=== PATIENT | female | born 1990 | race Caucasian/White ===

== ENCOUNTER 2017-03-28 09:53 | Inpatient (IN) ==
[2017-03-28] MEDS ORDERED: Ringers Solution, Lactated 1,000 ML ONE ×3 (10:01→13:18)
[2017-03-28] MEDS ORDERED: CeFAZolin Pre 2,000 MG/100 ML 2,000 MG/100 ML BAG IVPB ONE (10:02)
[2017-03-28] MEDS ORDERED: Famotidine 20 MG/2 ML VIAL IVP ONE (10:02)
[2017-03-28] MEDS ORDERED: Oxytocin 20 units/ LR 1000 mL 20 UNIT/1,000 ML BAG IVC ONE (10:02)
[2017-03-28] MEDS ORDERED: Metoclopramide 10 MG/2 ML VIAL IVP ONE (10:02)
[2017-03-28] MEDS ORDERED: Ringers Solution, Lactated 1,000 ML IVC SCH (10:15)
[2017-03-28 10:32] LABS: Basophils # 0.1 K/mcL (0.0-0.2); Basophils % 0.5 %; Eosinophils # 0.1 K/mcL (0.0-0.6); Hematocrit 36.3 % (35.3-44.9); Hemoglobin 11.4 g/dL (11.5-15.4); Immature Granulocytes % 0.5 % (0-4); Lymphocytes # 1.5 K/mcL (0.6-4.6); Lymphocytes % 15.1 %; Mean Corpuscular HGB Conc 31.4 g/dL (31.6-35.5); Mean Corpuscular Hemoglobin 25.7 pg (28.0-33.3); Mean Corpuscular Volume 81.8 fL (83.0-100.0); Mean Platelet Volume 9.9 fL (9.4-12.4); Monocytes # 0.8 K/mcL (0.0-1.3); Monocytes % 7.7 %; Neutrophils # 7.4 K/mcL (1.6-8.9); Platelet Count 256 K/mcL (140-400); Red Blood Count 4.44 M/mcL (3.82-4.97); Red Cell Distribution Width 19.1 % (11.5-14.5); Segmented Neutrophils % 75.2 %
[2017-03-28 10:38] LABS: Amphetamine Screen,Urine Negative ng/mL (Cutoff=1000); Barbiturate Screen,Urine Negative ng/mL (Cutoff=200); Benzodiazepines Screen,Urine Negative ng/mL (Cutoff=200); Cannabinoid Screen,Urine Negative ng/mL (Cutoff = 50); Cocaine Screen,Urine Negative ng/mL (Cutoff= 300); Opiate Screen,Urine Negative ng/mL (Cutoff=300); Phencyclidine Screen,Urine Negative ng/mL (Cutoff=25)
--- NOTE | 2017-03-28 10:46 | OB/GYN History & Physical ---
Date of Encounter: 03/28/17 Time of Encounter: 10:39 Assessment and Plan (1) History of section, low transverse Current visit: Yes Status: Acute Scheduled repeat section today. (2) 39 weeks gestation of Current visit: Yes Status: Acute Scheduled delivery today. History of Present Illness Chief complaint: Patient her for scheduled repeat c/s at 39 weeks HPI: Ms. Mcgrath is a 26 year old female at 39.0wks with history of 2 previous c- sections her for scheduled repeat . Blood Type A+, GBS negative, Rubella Immune, HBSAG nonreactive, Varicella immune. Pt reports + movement , occassional contractions, denies LOF and vaginal bleeding. Past Med Surg Social Fam HX - Past Medical History Source: patient Medical history: no medical history Psychiatric history: no psych history - Past Surgical History Surgical History: - Social History Smoking Status: Former smoker Alcohol use: none Drug use: none Current living situation: Home - Independent Activity Level: Independent ambulation Recent Out of Country Travel Within the Last 8 Weeks: No Exposure or Possible Exposure to Illness During Travel: No - Family History Father Name: Dale Age: 50 Living Status: Still Living Hx Family Cardiac Disorders: Yes (HTN) Obstetrical History - Pregnancies : 3 Para: 2 Term: 2 : 0 Ab's: 0 Livin - History/Complications History/Complications: FHR 135bpm, moderate variability, +15x15 accels, no decels. Category I tracing. Ctx irregular. Medications and Allergies Ferrous Sulfate [Iron] 325 mg PO DAILY 03/28/17 [History] Vit/Iron Fumarate/FA [ Tablet] 1 tab PO DAILY 03/28/17 [History ] 3 Allergy/AdvReac Type Severity Reaction Status Date / Time albuterol [From Ventolin HFA] AdvReac Palpitation Verified 11/09/16 10:52 s Review of System OB All systems PM: reviewed and no additional remarkable complaints except as stated - Constitutional Constitutional ROS IM: no chills, no fever(s), no headache(s) - Respiratory Respiratory: no dyspnea, no wheezing Exam - Constitutional Constitutional: well developed, well nourished, no acute distress - Neck Neck exam: full ROM, normal inspection - Lungs Respiratory exam: CTAB - Cardiovascular Cardiovascular exam: RRR, +S1, +S2 - Abdomen Abdomen: Present: bowel sounds normal, gravid, non tender - Extremities Extremities exam: full ROM, normal inspection Results Result Diagrams: 03/28/17 10:10 Abnormal lab results Hgb 11.4 g/dL (11.5-15.4) L 03/28/17 10:10 MCV 81.8 fL (83.0-100.0) L 03/28/17 10:10 MCH 25.7 pg (28.0-33.3) L 03/28/17 10:10 MCHC 31.4 g/dL (31.6-35.5) L 03/28/17 10:10 RDW 19.1 % (11.5-14.5) H 03/28/17 10:10 All other labs normal. - VTE Reasons for not Prescribing Prophylaxis: Treatment not Indicated - Low risk for VTE
--- NOTE | 2017-03-28 11:11 | Anesthesia Evaluation PreOp ---
Date of Encounter: 03/28/17 Time of Encounter: 11:09 - Past History Planned Operation: Repeat C Section Cardiac History: Denies any Significant Hx Pulmonary History: Denies Any Significant HX SERVER PROGRAMMER History: Denies Any Significant HX Other Medical History: Denies Any Significant HX Anesthesia History: Past Anesthesia (MARY x 1, spinal x 1; denies personal h/o NA complications; never had GA before; denies family h/o GA complications) : Yes Test: Positive Alcohol Use: none Drug use: none Medications and Allergies Ferrous Sulfate [Iron] 325 mg PO DAILY 03/28/17 [History] Vit/Iron Fumarate/FA [ Tablet] 1 tab PO DAILY 03/28/17 [History ] 3 Allergy/AdvReac Type Severity Reaction Status Date / Time albuterol [From Ventolin HFA] AdvReac Palpitation Verified 11/09/16 10:52 s - Meds/Allergy Pre-op Review Medications Reviewed: Yes Allergies Reviewed: Yes Beta Blockers on Current Med List: No Anesthesia Results - Labs 03/28/17 10:10 Anesthesia Exam 124/68, HR105, RR 18 O2 Sat Height 1.57 m Weight 91 kg NPO (# of Hours): >8hrs Pain Scale: 0 Pain Scale Used: Numeric (1 - 10) - HEENT Pupil (Motor): Pupils equal Mallampati: II Teeth: Normal Oral Opening: Greater than 3 - SERVER PROGRAMMER LOC: Oriented SERVER PROGRAMMER Motor: Normal RUE, Normal LUE, Normal RLE, Normal LLE, Normal Face SERVER PROGRAMMER Sensory: Normal: RUE, LUE, RLE, LLE, Face - Cardiac Rhythm: Regular Murmur: None - Pulmonary Breath Sounds: bilateral Clear Respiratory Effort: Symmetrical Anesthesia Assess/Plan ASA Score: 2 Modified Jessi Scale for Level of Consciousness: Cooperative, oriented, and tranquil Anesthetic Plan: Regional Autologous Blood: No Monitoring Plan: Standard Monitors Recovery Plan: PACU
[2017-03-28] MEDS ORDERED: *HR* FentaNYL (PF) 100 MCG/2 ML VIAL ONE (11:14)
[2017-03-28] MEDS ORDERED: *HR* Morphine Sulfate/PF 5 MG/10 ML AMPUL ONE (11:14)
[2017-03-28] MEDS ORDERED: *HR* Phenylephrine 10 MG/ML VIAL ONE (11:19)
[2017-03-28] MEDS ORDERED: *HR* Oxytocin 10 UNIT/ML VIAL IM ONE (11:21)
[2017-03-28] MEDS ORDERED: *HR* HYDROmorphone (PF) 1 MG/ML SYRINGE IVP PRN ×2 (13:14→17:02)
[2017-03-28] MEDS ORDERED: Naloxone 0.4 MG/ML INJ IVP PRN ×2 (13:14→17:02)
[2017-03-28] MEDS ORDERED: Ondansetron 4 MG/2 ML VIAL IVP PRN ×2 (13:14→17:02)
[2017-03-28] MEDS ORDERED: Lidocaine -MPF 2% 5 ML VIAL ONE (13:48)
--- NOTE | 2017-03-28 14:29 | Anesthesia Evaluation Post Op ---
Date of Encounter: 03/28/17 Time of Encounter: 14:28 - Vital Signs Vital Signs: 107/52, HR 96, RR 15, SpO2 99% - Lungs Lungs: Clear Ascult./Percussion - Airway Airway: Non-obstructed - Cardiovascular Regular Rate - Mental Status Mental Status: Alert & Oriented, Answers Appropriately - Pain Pain Scale: 0 Pain Scale used: Numeric (1 - 10) - Nausea Vomiting Nausea Vomiting: Not Present - Hydration Hydration: NPO, Hadley catheter - Discharge PostOp Status: Transfer Patient to floor
[2017-03-28] MEDS ORDERED: Ibuprofen 600 MG TABLET PO PRN (17:02)
[2017-03-28] MEDS ORDERED: Oxytocin 20 units/ LR 1000 mL 20 UNIT/1,000 ML BAG IVC SCH (17:02)
[2017-03-28] MEDS ORDERED: Sennosides 8.6 MG TABLET PO PRN (17:02)
[2017-03-28] MEDS ORDERED: Rho Immune Globulin 1,500 UNIT SYRINGE IM ONE (17:02)
[2017-03-28] MEDS ORDERED: Metoclopramide 10 MG/2 ML VIAL IVP PRN (17:02)
[2017-03-28] MEDS: *HR* OxyCODONE/APAP 5/325 TABLET PO PRN (22:13)
[2017-03-29] MEDS: Prenatal Vit/FA 1 EACH TABLET PO SCH (09:19)
[2017-03-29] MEDS: Simethicone 80 MG TAB.CHEW PO PRN (09:19)
[2017-03-29 09:23] LABS: Basophils % 0.3 %; Eosinophils # 0.1 K/mcL (0.0-0.6); Eosinophils % 0.5 %; Hematocrit 31.3 % (35.3-44.9); Immature Granulocytes % 0.3 % (0-4); Lymphocytes % 8.6 %; Mean Corpuscular HGB Conc 30.4 g/dL (31.6-35.5); Mean Corpuscular Volume 82.4 fL (83.0-100.0); Mean Platelet Volume 10.2 fL (9.4-12.4); Monocytes # 0.9 K/mcL (0.0-1.3); Monocytes % 7.8 %; Neutrophils # 9.5 K/mcL (1.6-8.9); Platelet Count 257 K/mcL (140-400); Red Cell Distribution Width 19.3 % (11.5-14.5); Segmented Neutrophils % 82.5 %
[2017-03-29 09:31] LABS: Hemoglobin 9.5 g/dL (11.5-15.4)
--- NOTE | 2017-03-29 10:45 | OB/GYN Progress Note ---
Date of Encounter: 03/29/17 Time of Encounter: 10:43 - Assessment and Plan (1) delivery delivered Current Visit: Yes Status: Acute Stable POD 1. Continue current mangement. Anticipate DC tomorrow. Subjective - Subjective Interval history: Pt states feels well. Pain well managed on po pain medication. Up and ambulating in room. Patient reports: appetite normal, voiding normally, pain well controlled, ambulating normally : doing well Objective - Vital Signs Latest vital signs: Vital Signs Temp Pulse Pulse Resp BP Pulse Ox 03/29/17 04:00 98.5 F 100 18 94/64 100 03/28/17 23:00 98.9 F 95 16 100/64 98 03/28/17 19:30 97.8 F 89 16 104/69 97 03/28/17 18:30 97.7 F 96 96 16 100/61 98 03/28/17 17:35 97.4 F L 104 104 16 116/69 96 03/28/17 17:03 97.7 F 94 94 16 109/66 98 03/28/17 16:35 97.7 F 94 89 16 95/58 98 03/28/17 16:30 89 16 Intake and Output 03/28/17 03/29/17 03/29/17 23:59 07:59 15:59 Intake Total 720 / 720 400 / 400 Output Total 900 / 900 600 / 600 Balance -180 / -180 -200 / -200 Intake: Oral 720 / 720 400 / 400 Output: Catheter 900 / 900 600 / 600 Other: Weight 88.768 kg Patient Weight 03/29/17 23:59 Weight 88.768 kg - Exam Lungs: bilateral: normal Chest: Normal S1, Normal S2 Extremities: Present: normal Abdomen: Present: normal appearance, soft Incision: Present: dressed Uterus: Present: firm (At U) - Labs Labs: Laboratory Results - last 24 hr 03/29/17 08:16 WBC 11.6 H RBC 3.80 L Hgb 9.5 L D Hct 31.3 L MCV 82.4 L MCH 25.0 L MCHC 30.4 L RDW 19.3 H Plt Count 257 MPV 10.2 Immature Gran % 0.3 Seg Neutrophils % 82.5 Lymphocytes % 8.6 Monocytes % 7.8 Eosinophils % 0.5 Basophils % 0.3 Neutrophils # 9.5 H Lymphocytes # 1.0 Monocytes # 0.9 Eosinophils # 0.1 Basophils # 0.0
[2017-03-29] MEDS: *HR* OxyCODONE/APAP 5/325 TABLET PO PRN (18:26)
[2017-03-30] MEDS: *HR* OxyCODONE/APAP 5/325 TABLET PO PRN ×2 (00:36→08:11)
[2017-03-30] MEDS: Simethicone 80 MG TAB.CHEW PO PRN ×2 (00:38→08:15)
[2017-03-30] MEDS: Prenatal Vit/FA 1 EACH TABLET PO SCH (08:11)
--- NOTE | 2017-03-30 10:08 | Discharge Summary ---
Date of Encounter: 03/30/17 Time of Encounter: 10:05 - Discharge Diagnosis (1) delivery delivered Priority: Primary Status: Acute Comments: Vital signs stable, on POD2 patient has interest in going home. Pt has good appetite, baby feeding well, pt ambulates and able to void/bm/ flatus without difficulty. Lochia has no clots, mild. Will discharge today. - Discharge Medications Prescriptions: Ibuprofen [Motrin] 600 mg PO Q6HR PRN #20 tab PRN Reason: Pain Ferrous Sulfate 325 mg PO DAILY #7 tablet Home Medications: Vit/Iron Fumarate/FA [ Tablet] 1 tab PO DAILY 03/28/17 [History ] Docusate [Colace] 100 mg PO DAILY #7 capsule 03/30/17 [Rx] Ferrous Sulfate 325 mg PO DAILY #7 tablet 03/30/17 [Rx] Ibuprofen [Motrin] 600 mg PO Q6HR PRN #20 tab 03/30/17 [Rx] Vit/FA 1 each PO DAILY tablet 03/30/17 [Rx] Allergies/Adverse Reactions: 3 Allergy/AdvReac Type Severity Reaction Status Date / Time latex Allergy Rash Verified 03/28/17 11:28 albuterol [From Ventolin HFA] AdvReac Palpitation Verified 11/09/16 10:52 s Data Procedures and tests throughout hospitalization: Laboratory Tests 03/28/17 03/28/17 03/29/17 10:10 10:10 08:16 WBC 9.8 11.6 H RBC 4.44 3.80 L Hgb 11.4 L 9.5 L D Hct 36.3 31.3 L MCV 81.8 L 82.4 L MCH 25.7 L 25.0 L MCHC 31.4 L 30.4 L RDW 19.1 H 19.3 H Plt Count 256 257 MPV 9.9 10.2 Immature Gran % 0.5 0.3 Seg Neutrophils % 75.2 82.5 Lymphocytes % 15.1 8.6 Monocytes % 7.7 7.8 Eosinophils % 1.0 0.5 Basophils % 0.5 0.3 Neutrophils # 7.4 9.5 H Lymphocytes # 1.5 1.0 Monocytes # 0.8 0.9 Eosinophils # 0.1 0.1 Basophils # 0.1 0.0 Urine Opiates Screen Negative Ur Barbiturates Screen Negative Ur Phencyclidine Scrn Negative Ur Amphetamines Screen Negative U Benzodiazepines Scrn Negative Urine Cocaine Screen Negative U Marijuana (THC) Screen Negative Date of admission: 03/28/17 09:53 Primary care physician: PCP NONE Discharging clinician: Cassandra Adair Anticipated date of discharge: 03/30/17 - Patient Status Disposition: Home, Self-Care Condition: Good Functional capacity at discharge: independent ambulation Overall status at discharge: patient is back to baseline - Discharge Instructions Follow Up With: NONE,PCP [Primary Care Provider] - - Diet and Activity Activity: increase activity as tolerated Diet: advance to your usual diet Hospital Course Reason for admission: section (repeat ) Delivery: section Episiotomy: none Laceration: none Other procedures: none complications: none Discharge diagnosis: IUP at term delivered [place] baby: male Hospital course: Pt presented 03/28 for 3rd repeat 03/28/17. Provider: Dr. Klein Infant Delivery Date and Time: 131603/28/17. Gender: Boy (Jg) Apgars 8 and 9 (1 min/5min) Time Attestation: Total time spent providing and/or coordinating discharge services: Time Spent: Less than 30 minutes - VTE Reasons for not Prescribing Prophylaxis: Treatment not Indicated - Low risk for VTE Documentation of Mechanical Device: Intermittent pneumatic compression device Exam - Constitutional Vitals: Temp Pulse Resp BP Pulse Ox 97.8 F 86 20 103/69 99 03/29/17 19:20 03/29/17 19:20 03/29/17 19:20 03/29/17 19:20 03/29/17 19:20 General appearance IM: A&O X 3 - Respiratory Respiratory exam: Present: CTAB - Cardiovascular Cardiovascular exam IM: Present: +S1, +S2 - GI/Abdominal GI/Abdominal exam IM: no peritoneal signs Incision: dry, intact - Uterus Position: At Umbilicus - Extremities Exam Extremities exam IM: Present: warm. Absent: calf tenderness
[2017-03-30] MEDS ORDERED: Lanolin 7 G OINT...G. TP PRN (10:31)
[2017-03-30 12:10] VITALS: BP 113/67
[2017-03-30] MEDS ORDERED: FLUARIX QUAD 2017-18 36MOS UP/PF 0.5 ML SYRINGE IM ONE (17:15)
--- NOTE | 2017-04-12 08:17 | OB/GYN Procedure Note ---
Section - Date of procedure: 03/28/17 Preop diagnosis: desires repeat Post-op diagnosis: same Procedure: repeat low transverse Surgeon: Heriberto Klein Estimated blood loss (cc): 500 Store Receiving Clerk: Jg Saucedo Anesthesia Type: Spinal - Infant (s) A Infant Delivery Date: 03/28/17 Infant Delivery Time: 13:17 Presentation: vertex Gender: Male Gram Weight: 3.87 kg at 1 minute: 8 at 5 minutes: 9 Specimens collected: cord blood Placenta: spontaneous Cord: 3 umbilical vessels - Narrative Narrative: Patient's 26-year-old multiparous female presents for repeat section she is aware of operative risks and signed appropriate consent. Description procedure: Patient was taken operating room where spinal anesthesia was administered. She was prepped draped in usual sterile fashion bladder was drained of clear urine. Scalp was used to make pain still skin incision which sharply taken down the rectus fascia. Rectus fascia was incised midline fascial incision was extended bilaterally. Peritoneum was entered bluntly. Bladder blade was placed and bladder flap was developed and lower uterine segment. Scalp was used to make a low transverse uterine incision was was extended bluntly bilaterally. Membranes were ruptured to clear fluid and infant was delivered from vertex presentation. Cord was clamped cut and infant was having nurse personnel who were in attendance. Placenta was delivered manually and uterine cavity was massaged free of all residual tissue. Uterus was closed 0 Vicryl running lock stitch. Irrigation was performed hemostasis was ensured. Fascia was closed with 0 Vicryl in a running manner. After closure of fascia can irrigation was performed hemostasis was ensured. Skin edges were reapproximated with 4-0 Vicryl.
== END 2017-03-30 11:45 | disposition home or self-care (01) | DRG 540 ==
LOC: 1NENULAB 09:53 → 1NENUOBS 17:01
PROVIDERS: ADMIT Obstetrics & Gynecology; ATTEND Obstetrics & Gynecology

== ENCOUNTER 2019-01-17 22:13 | Inpatient (IN) ==
[2019-01-17 21:19] LABS: Amphetamine Screen,Urine Negative ng/mL (Cutoff=1000); Barbiturate Screen,Urine Negative ng/mL (Cutoff=200); Benzodiazepines Screen,Urine Negative ng/mL (Cutoff=200); Cannabinoid Screen,Urine Negative ng/mL (Cutoff = 50); Cocaine Screen,Urine Negative ng/mL (Cutoff= 300); Opiate Screen,Urine Negative ng/mL (Cutoff=300); Phencyclidine Screen,Urine Negative ng/mL (Cutoff=25)
[2019-01-17 21:29] LABS: Basophils % 0.2 %; Eosinophils # 0.1 K/mcL (0.0-0.6); Eosinophils % 0.5 %; Hematocrit 35.2 % (35.3-44.9); Hemoglobin 11.2 g/dL (11.5-15.4); Immature Granulocytes % 0.2 % (0-4); Lymphocytes # 2.1 K/mcL (0.6-4.6); Lymphocytes % 23.2 %; Mean Corpuscular HGB Conc 31.8 g/dL (31.6-35.5); Mean Corpuscular Hemoglobin 26.8 pg (28.0-33.3); Mean Corpuscular Volume 84.2 fL (83.0-100.0); Mean Platelet Volume 10.6 fL (9.4-12.4); Monocytes # 0.7 K/mcL (0.0-1.3); Monocytes % 7.8 %; Neutrophils # 6.2 K/mcL (1.6-8.9); Platelet Count 208 K/mcL (140-400); Red Blood Count 4.18 M/mcL (3.82-4.97); Red Cell Distribution Width 15.4 % (11.5-14.5); Segmented Neutrophils % 68.1 %; White Blood Count 9.1 K/mcL (4.3-11.1)
--- NOTE | 2019-01-17 21:38 | OB/GYN History & Physical ---
Date of Encounter: 01/17/19 Time of Encounter: 21:36 Assessment and Plan (1) History of section, low transverse Current visit: No Status: Acute 28yo at 37+5wks GA who presents with contraction(S), hx of CSD x3 1. Labor - hx of 3 prior FT LTCS - consented with Dr. Klein and scheduled for repeat - patient with medicaid and did NOT sign paperwork for tubal ligation - denies vaginal bleeding, leaking of fluid, does report CTX [id number] - TAUS performed on 01/08 showing ANTERIOR placenta, breech presentation - SVE: cl/th/hi, repeat unchanged s/p 1L IVF bolus - seen by anesthesia for consent for spinal epidural - reconfirmed consent including risks of surgical intervention - plan for repeat x4 CS at term for labor on a uterine scar Dispo: Admission to labor and delivery for CS, patient uncomfortable with contractions regular, on toco. RNST and reassuring. No obstetrical () compromise appreciated. Recommendation(S) for a term patient (>37wks) with uncomfortable contraction(s) resistant to IV hydration is for delivery. Patient is aware of her risk of possible hysterectomy. OK for blood products. MD GERMAINE (2) 39 weeks gestation of Current visit: No Status: Acute History of Present Illness Chief complaint: contractions, hx of prior CS x3 HPI: Ms. Mcgrath is a 28 year old female at 37+5wks GA who presents with concern for active labor. The patient has a complicated by rCS x3, this will be her 4th delivery. Unfortunately the patient did NOT sign tubal ligation paperwork, and she has medicaid. The patient is from [place], with [facility] PNC with Dr. Klein. The patient was scheduled for rLTCS on 01/29. GBS pending. Known "large baby" measuring >91%ile. Consent was signed for delivery with the patient. The patient currently denies n/v/d. Denies VB/LOF. Reports contraction(S) that started this evening. Active fetus. Past Med Surg Social Fam HX - Past Medical History Medical history: no medical history Psychiatric history: no psych history - Past Surgical History Surgical History: Additional surgical history: Oral Surgery - Social History Smoking Status: Never smoker Smokeless Tobacco Status: No Alcohol use: none Drug use: none - Family History Father Living Status: Still Living Hx Family Cardiac Disorders: Yes (HTN) Hx Family Respiratory Disorders: No Hx Family Cancer: No Hx Family GI Disorders: No Hx Family Genitourinary Disorders: No Hx Family Endocrine Disorder: No Hx Family Musculoskeletal Disorders: No Hx Family Neuromuscular Disorders: No Hx Family Neurologic Disorders: No Hx Family HEENT Disorders: No Hx Family Autoimmune Disorders: No Hx Family Reproductive Disorders: No Hx Family Psychosocial Disorders: No Hx Family Medical Disorders: No Obstetrical History - Pregnancies : 4 Para: 3 Term: 3 : 0 Ab's: 0 Livin Medications and Allergies Vit/Iron Fumarate/FA [ Tablet] 1 tab PO DAILY 03/28/17 [History] Docusate [Colace] 100 mg PO DAILY #7 capsule 03/30/17 [Rx] Ferrous Sulfate 325 mg PO DAILY #7 tablet 03/30/17 [Rx] Ibuprofen [Motrin] 600 mg PO Q6HR PRN #20 tab 03/30/17 [Rx] Vit/FA 1 each PO DAILY tablet 03/30/17 [Rx] Ibuprofen [Motrin] 600 mg PO Q8HR PRN #30 tab 06/22/17 [Rx] Allergy/AdvReac Type Severity Reaction Status Date / Time latex Allergy Rash Verified 06/22/17 10:15 albuterol [From Ventolin HFA] AdvReac Palpitation Verified 06/22/17 10:15 s Exam - Constitutional Constitutional: well developed, well nourished, no acute distress, average body habitus - HEENT HEENT: Normocephaly, Mucus Membranes Moist - Neck Neck exam: full ROM - Cardiovascular Cardiovascular exam: RRR - Abdomen Abdomen: Present: bowel sounds normal - Extremities Extremities exam: full ROM Results Result Diagrams: 01/17/19 21:10 Abnormal lab results Hgb 11.2 g/dL (11.5-15.4) L 01/17/19 21:10 Hct 35.2 % (35.3-44.9) L 01/17/19 21:10 MCH 26.8 pg (28.0-33.3) L 01/17/19 21:10 RDW 15.4 % (11.5-14.5) H 01/17/19 21:10 All other labs normal. - VTE Reasons for not Prescribing Prophylaxis: Treatment not Indicated - Low risk for VTE
--- NOTE | 2019-01-17 22:01 | Anesthesia Evaluation PreOp ---
Date of Encounter: 01/17/19 Time of Encounter: 21:58 - Past History Planned Operation: Spinal/repeat csection Cardiac History: Denies any Significant Hx Pulmonary History: Denies Any Significant HX, Asthma ADMISSIONS OFFICER History: Denies Any Significant HX Other Medical History: GERD, Other (anemia) Anesthesia History: No Prior Anesthetic Complications, Past Anesthesia (previous csection x 3, tooth extraction) : Yes Alcohol Use: none Drug use: none Medications and Allergies Vit/Iron Fumarate/FA [ Tablet] 1 tab PO DAILY 03/28/17 [History] Docusate [Colace] 100 mg PO DAILY #7 capsule 03/30/17 [Rx] Ferrous Sulfate 325 mg PO DAILY #7 tablet 03/30/17 [Rx] Ibuprofen [Motrin] 600 mg PO Q6HR PRN #20 tab 03/30/17 [Rx] Vit/FA 1 each PO DAILY tablet 03/30/17 [Rx] Ibuprofen [Motrin] 600 mg PO Q8HR PRN #30 tab 06/22/17 [Rx] Allergy/AdvReac Type Severity Reaction Status Date / Time latex Allergy Rash Verified 06/22/17 10:15 albuterol [From Ventolin HFA] AdvReac Palpitation Verified 06/22/17 10:15 s - Meds/Allergy Pre-op Review Medications Reviewed: Yes Allergies Reviewed: Yes Beta Blockers on Current Med List: No Anesthesia Results - Labs 01/17/19 21:10 Anesthesia Exam BP 128/75 P 88 R 16 T 97.0 Height: 5'2" Weight: 93.3kg NPO (# of Hours): 8hrs solids, 2hrs water Pain Scale: 4 Pain Scale Used: Numeric (1 - 10) - HEENT Pupil (Motor): Pupils equal Mallampati: II Teeth: Normal Oral Opening: Greater than 3 - ADMISSIONS OFFICER LOC: Oriented ADMISSIONS OFFICER Motor: Normal RUE, Normal LUE, Normal RLE, Normal LLE, Normal Face ADMISSIONS OFFICER Sensory: Normal: RLE, LLE, Face, Deficit: RUE (carpal tunnel), LUE (carpal tunnel) - Cardiac Rhythm: Regular Murmur: None JVD: No Carotid Bruit: No - Pulmonary Breath Sounds: bilateral Clear Respiratory Effort: Symmetrical Anesthesia Assess/Plan ASA Score: 2 Level of consciousness: Cooperative, Oriented, Tranquil Anesthetic Plan: Spinal Autologous Blood: Yes Monitoring Plan: Standard Monitors Recovery Plan: PACU
[~2019-01-17 22:13] MED LIST: CeFAZolin Premix DUPLEX 2,000 MG/50 ML BAG IVPB ONE; Famotidine 20 MG/2 ML VIAL IVP ONE; Metoclopramide 10 MG/2 ML VIAL IVP ONE; Ringers Solution, Lactated 1,000 ML IVC SCH; Ringers Solution, Lactated 1,000 ML ONE
[2019-01-17] MEDS ORDERED: *HR* Morphine Sulfate/PF 10 MG/10 ML AMPUL ONE (22:15)
[2019-01-17] MEDS ORDERED: Ondansetron 4 MG/2 ML VIAL ONE (22:50)
[2019-01-17] MEDS ORDERED: Dexamethasone 4 MG/ML VIAL ONE (22:50)
[2019-01-17] MEDS ORDERED: *HR* Phenylephrine 10 MG/ML VIAL ONE (22:55)
[2019-01-17] MEDS ORDERED: *HR* Oxytocin 10 UNIT/ML VIAL IM ONE (23:06)
--- NOTE | 2019-01-17 23:22 | Anesthesia Procedures ---
Date of Encounter: 01/17/19 Time of Encounter: 22:45 Procedures: Anesthesia - Epidural/Spinal Patient ID/Chart reviewed: Yes Patient examined: Yes OB Eval: Gestational age: 37.4 OB Eval: : 4 OB Eval: Hx Para: 3 OB Eval: Contractions: Non-stressed pattern Supplemental Oxygen: None/Room Air Site Prep: Aseptic Technique, Sterile prep and drape, Povidone-Iodine 1% Patient position: upright Local Anesthetic: Lidocaine 1% Amount of Local Anesthetic used: 3 Interspace Used: L4-L5 Blood: No CSF: Yes Paresthesia: No Spinal Needle Gauge: 25 Spinal Dose: Bupivicaine 0.75% 1.4ml Duramorph 300mcg Procedure: Intrathecal dose administered 1st pass in upright position with Pencan 25g. CSF aspirated with swirl. No immediate complications noted. VSS throughout. Vitals + FHT's: See anesthesia record.
[2019-01-17] MEDS ORDERED: Ibuprofen 400 MG TABLET PO PRN (23:50)
[2019-01-17] MEDS ORDERED: Ondansetron 4 MG/2 ML VIAL IVP PRN (23:50)
[2019-01-17] MEDS ORDERED: *HR* OxyCODONE/APAP 5/325 TABLET PO PRN (23:50)
[2019-01-17] MEDS ORDERED: Naloxone 0.4 MG/ML INJ IVP PRN (23:50)
[2019-01-17] MEDS ORDERED: Morphine Sulfate 2 MG/ML SYRINGE IVP PRN (23:50)
[2019-01-17] MEDS ORDERED: *HR* HYDROmorphone (PF) 1 MG/ML SYRINGE IVP PRN (23:50)
[2019-01-17] MEDS ORDERED: Oxytocin 20 units/ LR 1000 mL 20 UNIT/1,000 ML BAG IVC ONE (23:55)
[2019-01-17] MEDS ORDERED: Acetaminophen IV 1,000 MG/100 ML INFUS..BTL IVPB ONE (23:55)
--- NOTE | 2019-01-18 00:04 | OB/GYN Procedure Note ---
Section - Date of procedure: 01/17/19 Preop diagnosis: desires repeat Post-op diagnosis: same Procedure: repeat low transverse Surgeon: Paola Maldonado Blood Loss: 450 Was there an general surgery physician assistant present: No Anesthesia Type: Spinal section complications: none Disposition: Post floor Specimens: Placenta - (s) Infant A Delivery Date: 01/17/19 Infant Delivery Time: 23:06 Presentation: transverse lie Gender: Female Viability: Viable Pounds: 7 Ounces: 9 Gram Weight: 3430 kg at 1 minute: 5 at 5 minutes: 9 Cord: nuchal cord, delivered through nuchal - Narrative Narrative: OPERATIVE REPORT: DATE: 01/17/2019 PATIENT NAME: SUNITA SIMENTAL PROCEDURE: REPEAT LOW TRANSVERSE DELIVERY, HX OF 3 PRIOR DELIVERY DIAGNOSIS: 37+5 WEEKS GESTATION CONCERN FOR ACTIVE LABOR ON UTERINE SCAR HX OF 3 PRIOR LOW TRANSVERSE DELIVERIES TRANSVERSE PRESENTATION POSTOPERATIVE DIAGNOSIS: SAME EBL: 450ML UOP:300ML IVF: 1300ML SPECIMENS: PLACENTA CORD SEGMENT PROCEDURE: PATIENT WAS TAKEN TO OR WHERE SPINAL ANESTHESIA WAS FOUND TO BE ADEQUATE. PATIENT WAS PREPPED AND DRAPED IN THE USUAL STERILE FASHION. SITES WERE MARKED AND TIMEOUT WAS PERFORMED. A PFANNENSTIEL SKIN INCISION WAS PERFORMED AND CARRIED DOWN TO THE LEVEL OF THE FASCIA. THERE WERE DENSE RECTOFASCIAL ADHESION(S), THE PERITONEUM WAS NO LONGER INTACT AND THE UTERUS WAS EASILY VISUALIZED. USING JARAD CLAMPS, WE SUPERIORLY ELEVATED THE FASCIAL PLANE AND ATTEMPTED TO DISSECT DOWN THE RECTUS ABDOMINUS MUSCLES. WE THEN TURNED OUR ATTENTION INFERIORLY AND PERFORMED THE SAME TECHNIQUE TO ISOLATE THE RECTOFASCIAL PLANE. WE THEN DISSECTED DOWN THE MIDLINE OF THE RECTUS MUSCLE THIS WAS DENSELY ADHESED TO ONE ANOTHER BUT NOT TO THE UTERUS. WE ENTERED THE ABDOMINAL CAVITY RELATIVELY EASILY, WE WERE ABLE TO APPRECIATE NO UTERINE ADHESION(S). THE BLADDER BLADE WAS PLACED AND THE LOWER UTERINE SEGMENT WAS IDENTIFIED. THERE WAS AN OBVIOUS BLADDER REFLECTION APPRECIATED. UTERUS WAS PALPATED TO FUNDUS AND ADEQUATE SPACE FOR DELIVERY OF INFANT WAS APPRECIATED. NO BLADDER FLAP WAS CREATED PRIOR TO HYSTEROTOMY. WE WENT ABOVE THE LEVEL OF THE BLADDER REFLECTION. FLUID WAS CLEAR. WE EXTENDED THE HYSTEROTOMY SUPERIORLY AND INFERIORLY WITH BLUNT AND EQUAL EXTENSION. FETUS WAS FOUND TO BE IN THE TRANSVERSE PRESENTATION. I ROTATED THE PATIENT TO THE RODDY BREECH POSITION AND PERFORMED THE APPROPRIATE MANEUVERS FOR A SAFE DELIVERY. HIPS WERE FLEXED, BUTTOCKS WAS DELIVERED FOLLOWED BY THE R LEG, THEN THE L LEG. WE THEN DELIVERED THE R ARM, FOLLOWED BY THE L ARM. HEAD WAS THEN DELIVERED WITH MINIMAL FUNDAL PRESSURE WE FLEXED THE HEAD DOWNWARD. A LOOSE NUCHAL CORD WAS APPRECIATED AND THE INFANT DELIVERED THROUGH. BABY GIRL DID HAVE TERMINAL MECONIUM AT THE TIME OF DELIVERY AND WAS STUNNED. CORD WAS CLAMPED AND CUT AND THE INFANT WAS HANDED OFF TO PEDIATRICS FOR STIMULATION AND ASSESSMENT. APGARS 5/9. BABY WAS EASILY STIMULATED AND BECAME VIGOROUS AND CRYING. WE THEN TURNED OUR ATTENTION TO THE PLACENTA, AND DELIVERED IT SPONTANEOUSLY. WE EXTERIORIZED THE UTERUS AND STARTED IV PITOCIN. WE EVACUATED THE UTERUS TO ENSURE ALL CLOT AND DEBRIS WAS CLEARED FROM THE ENDOMETRIAL CAVITY. USING RINGED FORCEPS AT BOTH ANGLES, WE CLOSED THE HYSTEROTOMY IN THE RUNNING LOCKED FASHION USING 0-VICRYL SUTURE. HEMOSTASIS WAS APPRECIATED AND THE UTERUS WAS ENTERED BACK INTO THE ABDOMEN. BOTH ANGLES WERE STILL HEMOSTASIS WELL THE UTERINE INCISION, WHILE THE UTERUS WAS FIRM. WE CLEARED BOTH GUTTERS OF CLOT, AND TENTED BOTH THE SUPERIOR AND INFERIOR FASCIA TO ENSURE NO DEFECT WAS APPRECIATED WELL NO BLEEDING. HEMOSTASIS AND INTEGRITY (APPROPRIATE FOR A REPEAT ) WAS VISUALIZED. USING STRATAFIX SUTURE, WE BEGAN TO CLOSE THE FASCIA IN THE RUNNING FASHION, LOCKING THE FIRST THROW. THE FASCIA WAS FOUND TO BE COMPLETELY CLOSED AND ADEQUATE, AND HEMOSTATIC. THE SKIN WAS CLOSED USING 4-0 MONOCRYL SUTURE IN THE RUNNING FASCIA. HEMOSTASIS WAS APPRECIATED. DRESSING WAS PLACED: STERRI STRIPS, TELFA, TEGEDERM. COUNTS WERE CORRECT X3. HEMOSTASIS WAS APPRECIATED. I WAS PRESENT FOR THE ENTIRETY OF THE PROCEDURE. PATIENT WAS STABLE AND TRANSFERRED TO POSTOPERATIVE RECOVERY. OF NOTE: THERE WAS NO UTERINE WINDOW AND NO UTERINE ADHESION(S). I DID VERY MUCH VALET THE PATIENT ON CONTRACEPTION AND THE EXPONENTIALLY INCREASED RISK FOR A PLACENTA ACCRETA. SHE DID HAVE AN ANTERIOR PLACENTA HOWEVER IT WAS FUNDAL AND THANKFULLY NOT ALONG THE LINE OF THE HYSTEROTOMY. TUBAL LIGATION PAPERS WERE SIGNED WITH THE PATIENT WE DISCUSSED THE ABILITY FOR TUBAL. PAOLA VALLES MD OBSTETRICS AND GYNECOLOGY [facility]
[2019-01-18] MEDS ORDERED: Oxytocin 20 units/ LR 1000 mL 20 UNIT/1,000 ML BAG IVC SCH (02:34)
[2019-01-18] MEDS ORDERED: Sennosides 8.6 MG TABLET PO PRN (02:34)
[2019-01-18] MEDS ORDERED: Rho Immune Globulin 1,500 UNIT SYRINGE IM ONE (02:34)
[2019-01-18] MEDS ORDERED: Metoclopramide 10 MG/2 ML VIAL IVP PRN (02:34)
[2019-01-18] MEDS: Ondansetron 4 MG/2 ML VIAL IVP PRN ×2 (03:20→09:07)
--- NOTE | 2019-01-18 06:56 | Anesthesia Evaluation Post Op ---
Date of Encounter: 01/18/19 Time of Encounter: 01:00 - Vital Signs Vital Signs: Vital Signs Temperature 98.6 F 01/18/19 02:20 Pulse Rate 86 01/18/19 02:20 Respiratory Rate 16 01/18/19 02:20 Blood Pressure 104/56 01/18/19 02:20 O2 Sat by Pulse Oximetry 97 01/18/19 02:20 Temperature 97.7 F 01/18/19 05:20 Pulse Rate 84 01/18/19 05:20 Respiratory Rate 16 01/18/19 05:20 Blood Pressure 91/55 01/18/19 05:20 O2 Sat by Pulse Oximetry 97 01/18/19 05:20 - Lungs Lungs: Clear Ascult./Percussion - Airway Airway: Non-obstructed - Cardiovascular Regular Rate - Mental Status Mental Status: Alert & Oriented, Answers Appropriately - Pain Pain Scale: 4 Pain Scale used: Numeric (1 - 10) - Nausea Vomiting Nausea Vomiting: Not Present - Hydration Hydration: NPO, Hadley catheter - Discharge PostOp Status: Transfer Patient to floor
[2019-01-18] MEDS: Prenatal Vit/FA 1 EACH TABLET PO SCH (07:50)
[2019-01-18 08:44] LABS: Basophils % 0.1 %; Hematocrit 32.4 % (35.3-44.9); Hemoglobin 10.2 g/dL (11.5-15.4); Immature Granulocytes % 0.4 % (0-4); Lymphocytes # 1.6 K/mcL (0.6-4.6); Lymphocytes % 11.1 %; Mean Corpuscular HGB Conc 31.5 g/dL (31.6-35.5); Mean Corpuscular Hemoglobin 26.8 pg (28.0-33.3); Mean Corpuscular Volume 85.3 fL (83.0-100.0); Mean Platelet Volume 10.7 fL (9.4-12.4); Monocytes # 0.8 K/mcL (0.0-1.3); Monocytes % 5.8 %; Platelet Count 202 K/mcL (140-400); Red Cell Distribution Width 15.3 % (11.5-14.5); Segmented Neutrophils % 82.6 %
[2019-01-18 08:50] LABS: Neutrophils # 11.7 K/mcL (1.6-8.9); White Blood Count 14.1 K/mcL (4.3-11.1)
[2019-01-18] MEDS ORDERED: Ondansetron 4 MG/2 ML VIAL IVP PRN (08:59)
--- NOTE | 2019-01-18 11:39 | OB/GYN Progress Note ---
Date of Encounter: 01/18/19 Time of Encounter: 11:37 - Assessment and Plan (1) Status post repeat low transverse section Current Visit: Yes Status: Acute Meeting all day 1 milestones Continue routine care Anticipate discharge home tomorrow (2) Acute blood loss as cause of postoperative anemia Current Visit: Yes Status: Acute Continue iron supplementation daily (3) Breast feeding status of mother Current Visit: Yes Status: Acute consult when necessary Subjective - Subjective Principal diagnosis: s/p RLTCS Interval history: Feeling well. Out of bed without dizziness. Some abdominal discomfort-using binder. Cramping minimal, using ibuprofen and Percocet. every 2- 3 hours. Some nipple soreness. Voiding without difficulty. Passing flatus, no BM yet. Tolerating clear liquid diet. Patient reports: appetite normal, voiding normally, pain well controlled, ambulating normally : doing well, nursing well Objective - Vital Signs Latest vital signs: Vital Signs Temp Pulse Resp BP Pulse Ox 01/18/19 08:30 97.7 F 88 18 97/62 96 01/18/19 05:20 97.7 F 84 16 91/55 97 01/18/19 04:30 97.9 F 99 16 95/56 97 01/18/19 03:20 97.6 F 98 16 101/60 96 01/18/19 02:50 98.1 F 95 16 98/56 96 01/18/19 02:20 98.6 F 86 16 104/56 97 Intake and Output 01/17/19 01/18/19 01/18/19 23:59 07:59 15:59 Intake Total 0 / 250 250 / 250 Output Total 670 / 670 Balance -670 / -420 250 / -420 Intake: Oral 0 / 250 250 / 250 Output: Catheter 670 / 670 Other: Weight 93.395 kg - Exam Lungs: bilateral: normal Chest: Normal S1, Normal S2 Extremities: Present: normal Abdomen: Present: normal appearance, soft Incision: Present: normal, dry, intact, dressed Uterus: Present: normal, firm Fundal Height: 2 (below and midline) - Labs Labs: Laboratory Results - last 24 hr 01/17/19 01/17/19 01/18/19 21:00 21:10 08:01 WBC 9.1 14.1 H D RBC 4.18 3.80 L Hgb 11.2 L 10.2 L Hct 35.2 L 32.4 L MCV 84.2 85.3 MCH 26.8 L 26.8 L MCHC 31.8 31.5 L RDW 15.4 H 15.3 H Plt Count 208 202 MPV 10.6 10.7 Immature Gran % 0.2 0.4 Seg Neutrophils % 68.1 82.6 Lymphocytes % 23.2 11.1 Monocytes % 7.8 5.8 Eosinophils % 0.5 0.0 Basophils % 0.2 0.1 Neutrophils # 6.2 11.7 H Lymphocytes # 2.1 1.6 Monocytes # 0.7 0.8 Eosinophils # 0.1 0.0 Basophils # 0.0 0.0 Urine Opiates Screen Negative Ur Buprenorphine Scrn Negative Ur Barbiturates Screen Negative Ur Phencyclidine Scrn Negative Ur Amphetamines Screen Negative U Benzodiazepines Scrn Negative Urine Cocaine Screen Negative U Marijuana (THC) Screen Negative Ur Drug Screen Interp See Below
[2019-01-18] MEDS: Ibuprofen 600 MG TABLET PO PRN ×2 (14:00→20:27)
[2019-01-18] MEDS ORDERED: Lanolin 7 G OINT...G. TP PRN (14:36)
[2019-01-19] MEDS: *HR* OxyCODONE/APAP 5/325 TABLET PO PRN ×2 (02:09→08:02)
[2019-01-19] MEDS: Simethicone 80 MG TAB.CHEW PO PRN ×2 (02:09→08:11)
[2019-01-19] MEDS: Prenatal Vit/FA 1 EACH TABLET PO SCH (08:01)
[2019-01-19 08:29] VITALS: BP 100/59
--- NOTE | 2019-01-19 09:36 | Discharge Summary ---
Date of Encounter: 01/19/19 Time of Encounter: 09:25 - Discharge Diagnosis (1) Status post repeat low transverse section Priority: Primary Status: Acute Comments: Continue routine postop/ care discharge home today follow up with Dr. Mccann in 2 weeks for incision check Follow up with Dr. Klein in 6 weeks (2) Breast feeding status of mother Priority: Secondary Status: Acute Comments: support prn - Discharge Medications Prescriptions: New Docusate [Colace] 100 mg PO BID #60 capsule Ibuprofen [Motrin] 600 mg PO Q6HR PRN #60 tablet PRN Reason: Cramping OxyCODONE/APAP 5/325 [Percocet 5/325 MG] 1 each PO Q6HR PRN 5 Days #20 tablet PRN Reason: Moderate pain 4-6 Lanolin [Lansinoh] 1 appl TP Q4HR PRN oint...g. PRN Reason: Sore Nipples Mupirocin [Bactroban Oint] 1 appl TP BID tube Continued Vit/FA 1 each PO DAILY tablet Docusate [Colace] 100 mg PO DAILY #7 capsule Discontinued Vit/Iron Fumarate/FA [ Tablet] 1 tab PO DAILY Ferrous Sulfate 325 mg PO DAILY #7 tablet Ibuprofen [Motrin] 600 mg PO Q6HR PRN #20 tab PRN Reason: Pain Ibuprofen [Motrin] 600 mg PO Q8HR PRN #30 tab PRN Reason: Pain Home Medications: Docusate [Colace] 100 mg PO DAILY #7 capsule 03/30/17 [Rx] Vit/FA 1 each PO DAILY tablet 03/30/17 [Rx] Docusate [Colace] 100 mg PO BID #60 capsule 01/19/19 [Rx] Ibuprofen [Motrin] 600 mg PO Q6HR PRN #60 tablet 01/19/19 [Rx] Lanolin [Lansinoh] 1 appl TP Q4HR PRN oint...g. 01/19/19 [Rx] Mupirocin [Bactroban Oint] 1 appl TP BID tube 01/19/19 [Rx] OxyCODONE/APAP 5/325 [Percocet 5/325 MG] 1 each PO Q6HR PRN 5 Days #20 tablet 01/19/19 [Rx] Allergies/Adverse Reactions: Allergy/AdvReac Type Severity Reaction Status Date / Time latex Allergy Rash Verified 06/22/17 10:15 albuterol [From Ventolin HFA] AdvReac Palpitation Verified 06/22/17 10:15 s Data Procedures and tests throughout hospitalization: Laboratory Tests 01/17/19 01/17/19 01/18/19 21:00 21:10 08:01 WBC 9.1 14.1 H D RBC 4.18 3.80 L Hgb 11.2 L 10.2 L Hct 35.2 L 32.4 L MCV 84.2 85.3 MCH 26.8 L 26.8 L MCHC 31.8 31.5 L RDW 15.4 H 15.3 H Plt Count 208 202 MPV 10.6 10.7 Immature Gran % 0.2 0.4 Seg Neutrophils % 68.1 82.6 Lymphocytes % 23.2 11.1 Monocytes % 7.8 5.8 Eosinophils % 0.5 0.0 Basophils % 0.2 0.1 Neutrophils # 6.2 11.7 H Lymphocytes # 2.1 1.6 Monocytes # 0.7 0.8 Eosinophils # 0.1 0.0 Basophils # 0.0 0.0 Urine Opiates Screen Negative Ur Buprenorphine Scrn Negative Ur Barbiturates Screen Negative Ur Phencyclidine Scrn Negative Ur Amphetamines Screen Negative U Benzodiazepines Scrn Negative Urine Cocaine Screen Negative U Marijuana (THC) Screen Negative Ur Drug Screen Interp See Below Date of admission: 01/17/19 22:13 Primary care physician: Cleveland Kwok Discharging clinician: Paris Newell Anticipated date of discharge: 01/19/19 - Patient Status Disposition: Home, Self-Care Condition: Good Functional capacity at discharge: independent ambulation - Discharge Instructions Follow Up With: Cleveland Kwok DO [Primary Care Provider] - Noreen Mccann MD [Partnered Physician] - - Diet and Activity Activity: increase activity as tolerated Hospital Course Reason for admission: active labor Delivery: section Laceration: none Other procedures: none complications: none Discharge diagnosis: IUP at term delivered baby: female (breast feeding) Time Attestation: Total time spent providing and/or coordinating discharge services: Time Spent: Less than 30 minutes - VTE Reasons for not Prescribing Prophylaxis: Treatment not Indicated - Low risk for VTE Documentation of Mechanical Device: Intermittent pneumatic compression device Exam - Constitutional Vitals: Temp Pulse Resp BP Pulse Ox 98.2 F 86 16 100/59 97 01/19/19 08:26 01/19/19 08:26 01/19/19 08:26 01/19/19 08:26 01/18/19 20:30 General appearance IM: A&O X 3, pleasant, answers questions appropriately - Respiratory Respiratory exam: Present: CTAB - Cardiovascular Cardiovascular exam IM: Present: RRR, +S1, +S2 - GI/Abdominal GI/Abdominal exam IM: normal bowel sounds Incision: normal, dry, intact, dressed (steri strips and binder) - Uterine Tone: Firm Uterus Position: 3 Fingers Below Umbilicus, Midline - Extremities Exam Extremities exam IM: Present: full ROM - Neurological Exam Neurological exam: alert, oriented X3, reflexes normal
[2019-01-19] MEDS: Ibuprofen 600 MG TABLET PO PRN (11:39)
== END 2019-01-19 12:17 | disposition home or self-care (01) | DRG 540 ==
LOC: 1NENULAB → 1NENUOBS 01-18 02:20
PROVIDERS: ADMIT Registered Nurse; ATTEND Registered Nurse